=== PATIENT | female | born 1995 | race Two or more races ===

== ENCOUNTER 2021-04-10 20:33 | Emergency (ER) | payer MEDICAID ==
[~2021-04-10] VITALS: Ht 165.1 cm; Wt 61.2 kg
--- NOTE | 2021-04-10 20:35 | NUR ---
TO ER BED 15 AMBULATORY C/O SI THOUGHTS WITHOUT PLAN. "I'M HERE FOR MY MENTAL HEALTH, I NEED HELP". PT AAOX4 NO ACUTE DISTRESS NOTED, RESP EVEN AND UNLABORED. PT CALM AND COOPERATIVE AT THIS TIME. PT REPORT FEELING WORTHLESS AND A BURDEN TO HER FAMILY AND FRIENDS. PLACE PT ON HOSPITAL GOWN, ALL BELONGINGS REMOVED FROM ROOM AND PLACED IN A LOCKED HOSPITAL LOCKER. 1:1 SITTER AT BEDSIDE FOR PT SAFETY.
--- NOTE | 2021-04-10 21:16 | NUR ---
LASERIST AT [facility] FOR BLOOD DRAW.
--- NOTE | 2021-04-10 21:20 | NUR ---
URINE SAMPLE COLLECTED, COVID SWAB COLLECTED, BLOOD DRAWN BY DIMETHYLANILINE SULFATOR OPERATOR.
[2021-04-10 21:25] LABS: BASOPHILS # (AUTO) 0.1 K/uL (0.0-0.2); BASOPHILS % (AUTO) 0.9 % (0.0-2.0); EOSINOPHILS % (AUTO) 1.5 % (0.0-6.0); HEMATOCRIT 38 % (33-45); LYMPHOCYTES # (AUTO) 3.4 K/uL (0.8-4.8); LYMPHOCYTES % (AUTO) 35.9 % (20.0-44.0); MEAN CORPUSCULAR HGB CONC 34 g/dl (31.0-36.0); MEAN CORPUSCULAR VOLUME 94 fL (82-100); MONOCYTES # (AUTO) 0.6 K/uL (0.1-1.30); MONOCYTES % (AUTO) 6.3 % (2.0-12.0); NEUTROPHILS # (AUTO) 5.3 K/uL (1.8-8.9); NEUTROPHILS % (AUTO) 55.4 % (43.0-81.0); PLATELET COUNT (AUTO) 227 K/uL (150-450); RED BLOOD CELL COUNT(AUTO) 4.09 MIL/uL (4.0-5.2); WHITE BLOOD COUNT (AUTO) 9.5 K/uL (4.3-11.0)
[2021-04-10 21:26] LABS: BILIRUBIN,URINE NEGATIVE (NEGATIVE); COLOR,URINE YELLOW (YELLOW); LEUKOCYTE ESTERASE ,URINE LARGE (NEGATIVE); NITRITE, URINE NEGATIVE (NEGATIVE); PROTEIN,URINE NEGATIVE (NEGATIVE); UGLUCOSE NEGATIVE (NEGATIVE); UROBILINOGEN,URINE 0.2 EU/dL (0.2)
[2021-04-10 21:36] LABS: BACTERIA,URINE 3+ /HPF (None Seen); CALCIUM, SERUM 8.3 mg/dL (8.5-10.1); CARBON DIOXIDE 25 mmol/L (21-32); CHLORIDE 106 mmol/L (98-107); GLUCOSE 88 mg/dL (74-106); POTASSIUM 3.8 mmol/L (3.5-5.1); SODIUM SERUM 140 mmol/L (136-145); UREA NITROGEN, BLOOD 9 mg/dL (7-18); WBC,URINE 21-50 /HPF (0-3)
[2021-04-10 21:42] LABS: ALANINE AMINOTRANSFERASE 15 U/L (12-78); ALBUMIN 3.7 g/dL (3.4-5.0); ALCOHOL, BLOOD < 3 mg/dL (0-0); ALKALINE PHOSPHATASE 48 U/L (46-116); ASPARTATE AMINOTRANSFERASE 13 U/L (15-37); BILIRUBIN,DIRECT 0.1 mg/dL (0.0-0.2); BILIRUBIN,TOTAL 0.4 mg/dL (0.2-1.0); TOTAL PROTEIN, SERUM 6.9 g/dL (6.4-8.2)
[2021-04-10 21:46] LABS: ACETAMINOPHEN 0 ug/ml (10-30)
[2021-04-10] MEDS ORDERED: LORAZEPAM 1 MG TABLET ONE (21:53)
[2021-04-10] MEDS: LORAZEPAM 1 MG TABLET PO ONE (21:55)
[2021-04-10] MEDS ORDERED: NITR100C6 PO (23:13)
--- NOTE | 2021-04-11 01:34 | NUR ---
PT ASLEEP, NO ACUTE DISTRESS NOTED, RESP EVEN AND UNLABORED. CALL LIGHT WITHIN REACH. WILL CONTINUE TO MONITOR PT. 1:1 SITTER AT BEDSIDE TO TAKE PT HOME.
--- NOTE | 2021-04-11 02:31 | NUR ---
HIWOT BOLDENW AT BEDSIDE TO DONALD GANDHI.
[2021-04-11] MEDS ORDERED: LORA-259 PO (02:49)
[2021-04-11] MEDS ORDERED: NITROFURANTOIN/NITROFURAN MONOHYDRATE 100 MG CAPSULE ONE (02:59)
[2021-04-11] MEDS: NITROFURANTOIN/NITROFURAN MONOHYDRATE 100 MG CAPSULE PO SCH (03:14)
--- NOTE | 2021-04-11 03:19 | NUR ---
Patient discharged to home in stable condition. Written and verbal after care instructions given. Patient verbalizes understanding of instruction. Pt ambulated out of ED. VSS. Provided with clothes and belonings.
[2021-04-11 03:20] VITALS: BP 131/76
== END 2021-04-11 03:20 | disposition home or self-care (01) ==
LOC: ER 20:36
DX: R45.851 Suicidal ideations (principal); F32.9 Major depressive disorder, single episode, unspecified; F19.10 Other psychoactive substance abuse, uncomplicated; F14.10 Cocaine abuse, uncomplicated; F12.10 Cannabis abuse, uncomplicated; F41.9 Anxiety disorder, unspecified; F43.10 Post-traumatic stress disorder, unspecified
CPT/HCPCS: 36415; 80048-TC; 80076-TC; 81001; 84703-TC; 85025-TC; 87086-TC; G0480